=== PATIENT | female | born 1940 | race Caucasian/White ===

== ENCOUNTER → 2017-11-22 | Outpatient (CLI) | payer MEDICARE ==
[~2017-11-22] MED LIST: AMBIEN5 MG PO; ATORVASTATIN CA20 MG PO; CALCIUM CARBON500 MG PO; CINAMMON PO; D3 PO; HYDROCODONE-AP1 EAC1; LEVAQUIN500 MG PO; LISINOPRIL-HCT1 EAC1 PO; LOVASTATIN20 MG PO; NORCO 10-325 T1 EACH PO; NORCO 7.5-3251 EACH PO; TOPROL XL50 MG PO; VITAMIN B12 SHOT IM; Z.0.LOSARTAN POTAS10 PO; Z.0.LOVASTATIN20 MG PO; [UNRECOGNIZED DRUG - OTHER]
--- NOTE | 2017-11-22 12:12 | Diagnostic Imaging Report ---
PROCEDURE:L-SPINE COMPLETE COMPARISON:Lumbar spine CT dated 01/02/13 INDICATIONS:FALL FINDINGS: Limited by generalized demineralization. There are 5 lumbar-type vertebral bodies. Levoscoliosis of lumbar spine with multilevel advanced degenerative changes. Vertebral body heights are maintained. Vascular calcifications. Severe L4-L5 and L5-S1 facet arthropathy with minimal retrolisthesis of L5 in relation to L4. CONCLUSION: No definite evidence of acute fracture or subluxation of lumbar spine. If there is high clinical concern for injury, consider obtaining lumbar spine CT or MRI. Multilevel degenerative changes and lower lumbar spine facet arthropathy as described above. Dictated by: Tommy Connor M.D. on 11/22/2017 at 12:21 Electronically approved by: Tommy Connor M.D. on 11/22/2017 at 12:21
== END ==
LOC: RAD 09:20
PROVIDERS: ATTEND Internal Medicine
DX: M54.5 Low back pain (principal)
CPT/HCPCS: 72110

== ENCOUNTER → 2017-12-11 | Outpatient (CLI) | payer MEDICARE ==
--- NOTE | 2017-12-13 15:43 | Diagnostic Imaging Report ---
EXAMINATION: MRI of the lumbar spine without contrast HISTORY: Status post fall, worsening low back pain COMPARISON: Lumbar spine x-ray from 11/22/2017 TECHNIQUE: Sagittal T1, T2, STIR; axial T2 and proton density. FINDINGS: It is assumed that there are 5 lumbar vertebrae. Curvature/Alignment: Normal lordosis. Levoscoliosis with apex at L2. Grade 1-2 anterolisthesis at L4-L5. Left lateral spondylolisthesis at L3-L4 and right lateral recess at the L1-L2. Vertebrae: No evidence of recent fracture, infection, or neoplasm. Conus: Normal, terminating at L1-L2 Cauda equina: Unremarkable. Lower thoracic: Unremarkable. Paraspinal soft tissues: Severe atrophy of the paraspinal muscles. Cholelithiasis. Degenerative changes: L1-L2: Asymmetric to the right. Mild right foraminal stenoses L2-L3: Asymmetric to the right disc bulge and marginal endplate osteophytes as well as facet arthrosis. Moderate right foraminal stenoses L3-L4: Asymmetric to right disc osteophyte, ligamentum flavum thickening and facet arthrosis. Mild spinal canal stenosis. Moderately severe foraminal stenosis mainly on the right. L4-L5: Mild symmetric disc full chest the third processes as well as ligamentum flavum thickening. Moderate spinal canal and bilateral foraminal stenoses L5-S1: Facet arthrosis in the left. No canal or foraminal stenoses IMPRESSION: 1. Moderate to severe right foraminal stenosis at L2-L3 and L3-L4 due to degenerative changes and levoscoliosis. 2. Grade 1-2 spondylolisthesis at L3-L4. 3. Moderate degenerative spinal canal and bilateral foraminal stenosis at L4-L5. Signed by: Dr. Bree Argueta M.D. on 12/13/2017 3:40 PM
== END ==
LOC: MRI 11:31
PROVIDERS: ATTEND Internal Medicine
DX: M54.5 Low back pain (principal); W19.XXXA Unspecified fall, initial encounter
CPT/HCPCS: 72148

== ENCOUNTER → 2018-06-29 | Outpatient (CLI) | payer MEDICARE | LOC: MAMMO 09:13 | PROVIDERS: ATTEND Internal Medicine | DX: Z12.31 Encounter for screening mammogram for malignant neoplasm of breast (principal) | CPT/HCPCS: 77067 ==

== ENCOUNTER 2019-03-05 09:16 | Emergency (ER) | payer MEDICARE ==
[~2019-03-05] VITALS: Ht 157.5 cm; Wt 59.4 kg
--- OUTSIDE RECORDS SUMMARY | 2019-03-05 09:20 | XMS REPORT ---
Author Author [facility] Address Unknown Phone Unavailable Care Team Providers Care Associate Professor Of Economics Name Role Phone FABIO GARY Unavailable Unavailable Problems This patient has no known problems. Allergies, Adverse Reactions, Alerts This patient has no known allergies or adverse reactions. Medications This patient has no known medications. Results Test Description Test Time Test Comments Text Results Atomic Results Result Comments MAMMOGRAPHY DIGITAL SCR BILAT 2018-06-29 10:53:00 [place] [address] Patient Name: SHANNAN FLORIAN MR #: [id number] : 1940 Age/Sex: 78/F Req #: [id number] [facility] Physician: Ordered by: FABIO GARY MD Report #: [id number] Location: MAMMO Room/Bed: Procedure: [id number] MG/MAMMOGRAPHY DIGITAL SCR BILAT Exam Date: 06/29/18 Exam Time: 914 REPORT STATUS: Signed #[id number] - MGSCRBIL #BILATERAL DIGITAL SCREENING MAMMOGRAM WITH CAD: 06/29/2018 CLINICAL: Routine screening. Comparison is made to exams dated: 07/13/2017 mammogram, 08/26/2015 mammogram and 09/19/2013 mammogram - [facility]. There are scattered fibroglandular elements in both breasts. Current study was also evaluated with a Computer Aided Detection (CAD) system. No new significant masses, calcifications, or other findings are seen in either breast. IMPRESSION: BENIGN There is no mammographic evidence of malignancy. A 1 year screening mammogram is recommended. The patient will be notified by letter of the results. Maurice Abel M.D. ks/:07/05/2018 10:19:12 Antique Refinisher: Nicky VANCE)(Kim), [facility] letter sent: Normal Exam Mammogram BI-RADS: 2 Benign Dictated By: MAURICE ABEL MD 1019 Transcribed By: ELDA on 07/05/18 1019 COPY TO: FABIO GARY MD MRI SPINE LUMBAR WO [place] [address] Patient Name: SHANNAN FLORIAN MR #: [id number] : 1940 Age/Sex: 77/F Req #: [id number] Adm Physician: Ordered by: FABIO GARY MD Report #: [id number] Location: MRI Room/Bed: Procedure: [id number] MRI/MRI SPINE LUMBAR WO Exam Date: Exam Time: REPORT STATUS: Signed EXAMINATION: MRI of the lumbar spine without contrast HISTORY: Status post fall, worsening low back pain COMPARISON: Lumbar spine x-ray from 11/22/2017 TECHNIQUE: Sagittal T1, T2, STIR; axial T2 and proton density. FINDINGS: It is assumed that there are 5 lumbar vertebrae. Curvature/Alignment: Normal lordosis. Levoscoliosis with apex at L2. Grade 1-2 anterolisthesis at L4-L5. Left lateral spondylolisthesis at L3-L4 and right lateral recess at the L1-L2. Vertebrae: No evidence of recent fracture, infection, or neoplasm. Conus: Normal, terminating at L1-L2 Cauda equina: Unremarkable. Lower thoracic: Unremarkable. Paraspinal soft tissues: Severe atrophy of the paraspinal muscles. Cholelithiasis. Degenerative changes: L1-L2: Asymmetric to the right. Mild right fora anna stenoses L2-L3: Asymmetric to the right disc bulge and marginal endplate osteophytes as well as facet arthrosis. Moderate right foraminal stenoses L3-L4: Asymmetric to right disc osteophyte, ligamentum flavum thickening and facet arthrosis. Mild spinal canal stenosis. Moderately severe foraminal stenosis mainly on the right. L4-L5: Mild symmetric disc full chest the third processes as well as ligamentum flavum thickening. Moderate spinal canal and bilateral foraminal stenoses L5-S1: Facet arthrosis in the left. No canal or foraminal stenoses IMPRESSION: 1. Moderate to severe right foraminal stenosis at L2-L3 and L3-L4 due to degenerative changes and levoscoliosis. 2. Grade 1-2 spondylolisthesis at L3-L4. 3. Moderate degenerative spinal canal and bilateral foraminal stenosis at L4-L5. Signed by: Dr. Renato Argueta M.D. on 12/13/2017 3:40 PM Dictated By: RENATO ARGUETA MD 39 Transcribed By: EARLENE on 12/13/17 154 COPY TO: FABIO GRAY MD SP LUMBAR, COMPLETE MIN 4VW [place] [address] Patient Name: SHANNAN FLORIAN MR #: [id number] : 1940 Age/Sex: 77/F Req #: [id number] Adm Physician: Ordered by: FABIO GARY MD Report #: [id number] Location: [facility] Room/Bed: Procedure: [id number] DX/SP LUMBAR, COMPLETE MIN 4VW Exam Date: 11/22/17 Exam Time: 0945 REPORT STATUS: Signed PROCEDURE: L-SPINE COMPLETE COMPARISON: Lumbar spine CT dated 01/02/13 INDICATIONS: FALL FINDINGS: Limited by generalized demineralization. There are 5 lumbar-type vertebral bodies. Levoscoliosis of lumbar spine with multilevel advanced degenerative changes. Vertebral body heights are maintained. Vascular calcifications. Severe L4-L5 and L5-S1 facet arthropathy with minimal retrolisthesis of L5 in relation to L4. CONCLUSION: No definite evidence of acute fracture or subluxation of lumbar spine. If there is high clinical concern for injury, consider obtaining lumbar spine CT or MRI. Multilevel degenerative changes and lower lumbar spine facet arthropathy as described above. Dictated by: Tommy Whiting M.D. on 11/22/2017 at 12:21 Electronically approved by: Tommy Whiting M.D. on 11/22/2017 at 12:21 Dictated By: TOMMY WHITING MD 1221 Transcribed By: KVNG on 11/22/17 1221 COPY TO: FABIO GARY MD MAMMOGRAPHY DIGITAL SCR [place] [address] Patient Name: SHANNAN FLORIAN MR #: [id number] : 1940 Age/Sex: 77/F Req #: [id number] Adm Physician: Ordered by: FABIO GARY MD Report #: [id number] Location: [facility] Room/Bed: Procedure: [id number] MG/MAMMOGRAPHY DIGITAL SCR BILAT Exam Date: 07/13/17 Exam Time: 1443 REPORT STATUS: Signed #[id number] - MGSCRBIL #BILATERAL DIGITAL SCREENING MAMMOGRAM WITH CAD: 07/13/2017 Comparison is made to exams dated: 08/26/2015 mammogram, 09/19/2013 mammogram and 04/20/2011 mammogram - [facility]. Current study contains 4 films. There are scattered fibroglandular elements in both breasts. Current study was also evaluated with a Computer Aided Detection (CAD) system. There are benign vascular calcifications and punctate calcifications in both breasts. There also are stable benign nodules in both breasts. No significant masses, calcifications, or other findings are seen in either breast. There has been no significant interval change. IMPRESSION: BENIGN There is no mammographic evidence of malignancy. A 1 year screening mammogram is recommended. The patient will be notified by letter of the results. Dr. Unique Wall MD rs/:07/20/2017 08:41:34 Antique Refinisher: Nicky Lara RT(R)(M), [facility] letter sent: Compared to Prior B9 Mammogram BI-RADS: 2 Benign Dictated By: UNIQUE WALL MD 0 Transcribed By: ELDA on 07/20/17840 COPY TO: FABIO GARY MD
[2019-03-05] MEDS ORDERED: MUPIROCIN 2% OINT 22 GM TUBE TOP ONE (09:45)
[2019-03-05] MEDS ORDERED: LIDOCAINE HCL 1% LOCAL INJ 20 ML VIAL ONE (09:53)
[2019-03-05] MEDS ORDERED: LIDOCAINE HCL 1% 2 ML AMP INJ ONE (10:00)
[2019-03-05 10:18] VITALS: BP 135/78
== END 2019-03-05 10:22 | disposition home or self-care (01) ==
LOC: ER 09:16
DX: S81.811A Laceration without foreign body, right lower leg, initial encounter (principal); W22.03XA Walked into furniture, initial encounter; Y92.008 Other place in unspecified non-institutional (private) residence as the place of occurrence of the external cause; I10 Essential (primary) hypertension; E11.9 Type 2 diabetes mellitus without complications; E78.5 Hyperlipidemia, unspecified; H40.9 Unspecified glaucoma
CPT/HCPCS: 99283; J2001

== ENCOUNTER 2020-09-07 19:03 | Emergency (ER) | payer MEDICARE ==
[~2020-09-07] VITALS: Ht 157.5 cm; Wt 51.3 kg
[2020-09-07] MEDS ORDERED: BACTRIM DS TAB1 EACH PO (19:39)
--- NOTE | 2020-09-07 19:39 | Emergency Department Note ---
History of Present Illnes History of Present Illness Chief Complaint: skin tear left leg s/p ht it on an animal cage History of Present Illness This is a 80 year old female. was doing well prior to this. Historian: Patient Arrival Mode: Car History limited by: condition of the patient (normal) Court Stenographer Required: No Onset (how long ago): hour(s) (1) Location: rgt leg Quality: sharp Radiation: Reports non-radiation Severity: moderate Onset quality: sudden Duration (how long): hour(s) (1) Timing of current episode: constant Progression: unchanged Chronicity: new Context: Reports trauma/injury; Denies recent illness, Denies recent surgery, Denies recent immobilization, Denies recent travel, Denies new medications, Denies hx of DVT/PE, Denies non- compliance w/ medications Relieving factors: none Exacerbating factors: none Associated symptoms: Reports denies other symptoms Treatments prior to arrival: none Past Medical/Family History Physician Review I have reviewed the patient's past medical and family history. Any updates have been documented here. Past Medical History Recent Fever: No Clinical Suspicion of Infectio: No New/Unexplained Change in Ment: No Past Medical History: Hypertension, Diabetes, Hyperlipedemia Other Medical History: GLAUCOMA SVT Past Surgical History: Back Surgery Other Surgery: left foot surgery, bladder suspension, CATARACTS C6-C7 SPINAL FUSION Carpel tunnel bilateral Right leg skin tear Social History Smoking Cessation: Never Smoker Counseling Performed: No Alcohol Use: None Any Illegal Drug Use: No Physically hurt or threatened: No Other Last Tetanus: UTD Any Pre-Existing Lines (PICC,: No Review of Systems Review of Systems Constitutional: Reports no symptoms EENTM: Reports no symptoms Cardiovascular: Reports no symptoms Respiratory: Reports no symptoms Gastrointestinal: Reports no symptoms Genitourinary: Reports no symptoms Musculoskeletal: Reports no symptoms Integumentary: Reports as per HPI Neurological: Reports no symptoms Psychological: Reports no symptoms Endocrine: Reports no symptoms Hematological/Lymphatic: Reports no symptoms Review of other systems: All other systems negative Physical Exam Related Data Allergies: Coded Allergies: Penicillins (Verified Allergy, Mild, RASH, 09/14/14) aspirin (Verified Allergy, Mild, ABD PAIN, 09/14/14) salsalate (Verified Allergy, Mild, HEARING LOSS, 09/14/14) carisoprodol (Verified Adverse Reaction, Mild, RAPID EYE MOVEMENT, 4) codeine (Verified Adverse Reaction, Mild, DIZZINESS AND VOMITING, 10/11/14) Triage Vital Signs Vital Signs Date Time Temp Pulse Resp B/P (MAP) Pulse Ox O2 Delivery O2 Flow Rate FiO2 09/07/20 19:10 98.5 78 16 180/87 100 Room Air Vital signs reviewed: Yes Physical Exam CONSTITUTIONAL Constitutional: Present well-developed, Present well-nourished HENT HENT: Present normocephalic, Present atraumatic, Present oropharynx clear/moist, Present nose normal HENT L/R: Present left ext ear normal, Present right ext ear normal EYES Eyes: Reports PERRL, Reports conjunctivae normal NECK Neck: Present ROM normal PULMONARY Pulmonary: Present effort normal, Present breath sounds normal CARDIOVASCULAR Cardiovascular: Present regular rhythm, Present heart sounds normal, Present capillary refill normal, Present normal rate GASTROINTESTINAL Abdominal: Present soft, Present nontender, Present bowel sounds normal GENITOURINARY Genitourinary: Present exam deferred SKIN Skin: Present warm, Present dry, Present other (10cm skin tear left leg. no bleeding) MUSCULOSKELETAL Musculoskeletal: Present ROM normal, Present edema NEUROLOGICAL Neurological: Present alert, Present oriented x 3, Present no gross motor or sensory deficits PSYCHOLOGICAL Psychological: Present mood/affect normal, Present judgement normal Procedures Laceration Laceration: Laceration 1 (skin tear left leg) Site: lower extremity (left anterior leg) Side: left Size (cm): 10 Description: flap Depth: simple, single layer Pre-repair: wound exposed, irrigated extensively (with hydrogen peroxide) Skin layer closed with: other (steristrips done by the nurse under my supervision) Additional comments no complications Assessment & Plan Medical Decision Making MDM see below Assessment & Plan Final Impression: (1) Skin tear Depart Disposition: HOME, SELF-CARE Last Vital Signs Date Time Temp Pulse Resp B/P (MAP) Pulse Ox O2 Delivery O2 Flow Rate FiO2 09/07/20 19:10 98.5 78 16 180/87 100 Room Air Home Meds Active Scripts Sulfamethoxazole/Trimethoprim (BACTRIM DS TABLET) 1 Each Tablet, 1 TAB PO Q12H, #28 TAB Prov:JEFRY UMANA 09/07/20 Metoprolol Succinate (TOPROL XL) 50 Mg Tab.er.24h, 50 MG PO DAILY for 30 Days Prov:MARCELINA HERNANDEZ MD 05/21/17 Reported Medications [Vitamin B12 Shot] No Conflict Check, 1 DOSE IM UD 05/19/17 Levofloxacin (LEVAQUIN) 500 Mg Tablet, 500 MG PO DAILY for 5 Days, TAB 03/19/17 Zolpidem Tartrate (AMBIEN) 5 Mg Tablet, 5 MG PO HS, #30 TAB 05/11/16 Atorvastatin Calcium (ATORVASTATIN CALCIUM) 20 Mg Tablet, 20 MG PO 2100, TAB 05/11/16 [Cinammon] No Conflict Check, PO DAILY 05/11/16 [D3 ] No Conflict Check, 2000 MG PO DAILY 05/11/16 Calcium Carbonate (CALCIUM CARBONATE) 500 Mg Tablet, 600 MG PO DAILY, TAB 05/11/16 Lisinopril/Hydrochlorothiazide (LISINOPRIL-HCTZ 20-25 MG TAB) 1 Each Tablet, 0.5 TAB PO BID 01/23/14 JEFRY UMANA Sep 07, 2020 19:39
--- OUTSIDE RECORDS SUMMARY | 2020-09-07 19:41 | XMS REPORT | Continuity of Care Document ---
Author Author [facility] Organization [facility] Address [address] [place] [address] [address] [place] [address] Phone Unavailable Care Team Providers Care Master Control Supervisor Name Role Phone FABIO GARY MD PCP FABIO GARY Attphys Unavailable Payers Payer Name Policy Type Policy Number Effective Date Expiration Date Lan ISAAC [id number] 2016 00:00:00 [facility] Medicare A & B [id number] 2007 00:00:00 [facility] Problems Condition Name Condition Details Condition Category Status Onset Date Resolution Date Last Treatment Date Treating Clinician Comments Source Chest pain Chest pain Problem Active [facility] Laceration of right lower extremity excluding thigh La ceration of leg not thigh, right Problem Active [facility] Sciatica Sciatica Problem Active [facility] Allergies, Adverse Reactions, Alerts Allergy Name Allergy Type Status Severity Reaction(s) Onset Date Inacti ve Date Treating Clinician Comments Source Codeine Propensity to adverse reactions Active Mild DIZZ INESS AND VOMITING 2014-10-11 00:00:00 [facility] Carisoprodol Propensity to adverse reactions Active Mild RA PID EYE MOVEMENT 2014-10-11 00:00:00 [facility] Penicillin Allergy to Substance Active Mild RASH 2014-09-14 00:00:00 [facility] Aspirin Allergy to Substance Active Mild ABD PAIN 2014-09-14 00:00:00 [facility] Salsalate Allergy to Substance Active Mild HEARING LOSS 2014-09-14 0 0:00:00 [facility] Medications Ordered Medication Name Filled Medication Name Start Date Stop Da te Current Medication? Ordering Clinician Indication Dosage Frequency Signature (SIG) Comments Components Source Metoprolol Succinate (Toprol Xl) 50 Mg Tab.er.24h Meto prolol Succinate (Toprol Xl) 50 Mg Tab.er.24h 2017-05-21 00:00:00 Yes Kamini day Md 50 Daily [facility] Atorvastatin Calcium 20 Mg Tablet Atorvastatin Calcium 20 Mg Tablet Yes 20 Today At 9:00PM [facility] Calcium Carbonate 500 Mg Tablet Calcium Carbonate 500 Mg Tablet Yes 600 Daily [facility] Cinammon Cinammon Yes Daily [facility] D3 D3 Yes 2000 Daily [facility] Levofloxacin (Levaquin) 500 Mg Tablet Levofloxacin (Levaquin) 500 M g Tablet Yes 500 Daily [facility] Lisinopril/Hydrochlorothiazide (Lisinopril-Hctz 20-25 Mg Tab) 1 Each Tablet Lisinopril/Hydrochlorothiazide (Lisinopril-Hctz 20-25 Mg Tab) 1 Each Tablet Yes .5 Twice A Day [facility] Vitamin B12 Shot Vitamin B12 Shot Yes 1 Use As Directed [facility] Zolpidem Tartrate (Ambien) 5 Mg Tablet Zolpidem Tartrate (Ambien ) 5 Mg Tablet Yes 5 Bedtime [facility] Hydrocodone Bit/Acetaminophen ([place] 10-325 Tablet) 1 Each Tablet, 1 Tab Oral Hydrocodone Bit/Acetaminophen ([place] 10-325 Tablet) 1 Each Tablet, 1 Tab Oral 2016-05-11 00:00:00 No 1 Every 6 Hours [facility] Hydrocodone Bit/Acetaminophen ([place] 7.5-325 Tablet) 1 Each Tablet, 1 Ea Oral Hydrocodone Bit/Acetaminophen ([place] 7.5-325 Tablet) 1 Each Tablet, 1 Ea Oral 2016-05-11 00:00:00 No 1 Every 4 Hours as nee ded for Pain [facility] Lovastatin 20 Mg Tablet, 20 Mg Oral Lovastatin 20 Mg Tablet, 20 Mg Oral 2016-05-11 00:00:00 No 20 Qhs [facility] Lovastatin 20 Mg Tablet, 20 Mg Oral Lovastatin 20 Mg Tablet, 20 Mg Oral 2016-05-11 00:00:00 No 20 Bedtime [facility] Zolpidem Tartrate (Ambien) 5 Mg Tablet, 5 Mg Oral Zolp idem Tartrate (Ambien) 5 Mg Tablet, 5 Mg Oral 2014-10-11 00:00:00 No 5 Qhs Prn [facility] Radha Garcia , 2012-04-05 00:00:00 No 80MG Daily [facility] Procedures This patient has no known procedures. Encounters Start Date/Time End Date/Time Encounter Type Admission Type [facility] Care Department Encounter ID Source 2019-03-05 09:16:00 2019-03-05 10:22:00 Departed Emergency Room [facility] [id number] [facility] 2018-06-29 09:13:00 2018-06-29 09:13:00 Registered Clinic 3 FABIO GARY [facility] [id number] [facility] Results Test Description Test Time Test Comments Results Result Comments Source MAMMOGRAPHY DIGITAL SCR BILAT 2018-06-29 10:53:00 [place] [address] Patient Name: SHANNAN FLORIAN MR #: [id number] : 1940 Age/Sex: 78/F Req #: [id number] Adm Physician: Ordered by: FABIO GARY MD Report #: [id number] Location: MAMMO Room/Bed: Procedure: [id number] MG/MAMMOGRAPHY DIGITAL SCR BILAT Exam Date: 06/29/18 Exam Time: 914 REPORT STATUS: Signed #[id number] - MGSCRBIL #BILATERAL DIGITAL SCREENING MAMMOGRAM WITH CAD: 06/29/2018 CLINICAL: Routine screening. Comparison is made to exams dated: 07/13/2017 mammogram, 08/26/2015 mammogram and 09/19/2013 mammogram - [facility]. There are scattered fibroglandular elements in both breasts. Current study was also evaluated with a Computer Aided Detection (CAD) system. No new significant masses, calcifications, or other findings are seen in either breast. IMPRESSION: BENIGN There is no mammographic evidence of malignancy. A 1 year screening mammogram is recommended. The patient will be notified by letter of the results. Mindy Abel M.D. ks/:07/05/2018 10:19:12 Blue Line Hanger: Nicky VANCE)(Kim), [facility] letter sent: Normal Exam Mammogram BI-RADS: 2 Benign Dictated By: MINDY ABEL MD 1019 Transcribed By: ELDA on 07/05/18 1019 COPY TO: FABIO GARY MD MRI SPINE LUMBAR WO [place] [address] Patient Name: SHANNAN FLORIAN MR #: [id number] : 1940 Age/Sex: 77/F Req #: [id number] [facility] Physician: Ordered by: FABIO GARY MD Report #: [id number] Location: MRI Room/Bed: Procedure: [id number] MRI/MRI SPINE LUMBAR WO Exam Date: Exam [...] 3:40 PM Dictated By: RENATO ARGUETA MD 1545 Transcribed By: EARLENE on 12/13/17 1549 COPY TO: FABIO GARY MD SP LUMBAR, COMPLETE MIN 4VW [place] [address] [place] [address] Patient Name: SHANNAN FLORIAN MR #: [id number] : 1940 Age/Sex: 77/F Req #: [id number] Adm Physician: Ordered by: FABIO GARY MD Report #: [id number] Location: [facility] Room/Bed: Procedure: [id number] DX/SP LUMBAR, COMPLETE MIN 4VW Exam Date: 11/22/17 Exam Time: 944 REPORT STATUS: Signed PROCEDURE: L-SPINE COMPLETE COMPARISON: [...] COPY TO: FABIO GARY MD MAMMOGRAPHY DIGITAL [place] [address] Patient Name: SHANNAN FLORIAN MR #: [id number] : 1940 Age/Sex: 77/F Req #: [id number] Adm Physician: Ordered by: FABIO GARY MD Report #: [id number] Location: MAMMO Room/Bed: Procedure: MG/MAMMOGRAPHY DIGITAL SCR BILAT Exam Date: 07/13/17 Exam Time: 1443 REPORT STATUS: Signed #[id number] - MGSCRBIL #BILATERAL DIGITAL SCREENING MAMMOGRAM WITH CAD: 07/13/2017 Comparison is made to exams dated: 08/26/2015 mammogram, 09/19/2013 mammogram and 04/20/2011 mammogram - [facility]. Current study contains 4 films. There [...] notified by letter of the results. Dr. Surjit Wall MD rs/:07/20/2017 08:41:34 [employer] Line Hanger: Nicky LYMAN(R)(M), [facility] letter sent: Compared to Prior B9 Mammogram BI-RADS: 2 Benign Dictated By: SURJIT WALL MD 0 Transcribed By: ELDA on 07/20/17840 COPY TO: FABIO GARY MD
[2020-09-07] MEDS ORDERED: TETANUS/DIPHTHERIA TOX ADULT 0.5 ML SYR ONE (19:58)
[2020-09-07] MEDS ORDERED: TETANUS/DIPHTHERIA TOX ADULT 0.5 ML SYR IM ONE (20:00)
== END 2020-09-07 20:30 | disposition home or self-care (01) ==
LOC: FSED 19:39
DX: S81.812A Laceration without foreign body, left lower leg, initial encounter (principal); W26.8XXA Contact with other sharp object(s), not elsewhere classified, initial encounter; Y93.01 Activity, walking, marching and hiking; Y92.008 Other place in unspecified non-institutional (private) residence as the place of occurrence of the external cause; I10 Essential (primary) hypertension; E11.9 Type 2 diabetes mellitus without complications; E78.5 Hyperlipidemia, unspecified; H40.9 Unspecified glaucoma
CPT/HCPCS: 90471; 90714; 99283

== ENCOUNTER 2020-10-21 13:15 | Outpatient (RCR) | payer MEDICARE ==
[~2020-10-21 13:15] MED LIST changes: +BACTRIM DS TAB1 EACH PO; +COLLAGENASE OINTMENT 30 GM TUBE ONE; +LIDOCAINE VISC 2% SOLN 15 ML UDC ONE
== END 2020-10-24 ==
LOC: WCC 13:15
PROVIDERS: ATTEND Internal Medicine Infectious Disease
DX: L03.116 Cellulitis of left lower limb (principal); S81.802A Unspecified open wound, left lower leg, initial encounter; R60.0 Localized edema; I83.93 Asymptomatic varicose veins of bilateral lower extremities; I87.2 Venous insufficiency (chronic) (peripheral); I10 Essential (primary) hypertension; E78.5 Hyperlipidemia, unspecified; M13.80 Other specified arthritis, unspecified site; W22.03XA Walked into furniture, initial encounter; X58.XXXA Exposure to other specified factors, initial encounter
CPT/HCPCS: 36415; 82948

== ENCOUNTER 2020-10-28 14:39 | Outpatient (RCR) | payer MEDICARE ==
[~2020-10-28 14:39] MED LIST changes: -COLLAGENASE OINTMENT 30 GM TUBE ONE; -LIDOCAINE VISC 2% SOLN 15 ML UDC ONE
== END 2020-11-24 ==
LOC: WCC 14:39
PROVIDERS: ATTEND Internal Medicine Infectious Disease
DX: E11.65 Type 2 diabetes mellitus with hyperglycemia (principal); L03.116 Cellulitis of left lower limb; S81.802A Unspecified open wound, left lower leg, initial encounter; I87.2 Venous insufficiency (chronic) (peripheral); I83.93 Asymptomatic varicose veins of bilateral lower extremities; E78.5 Hyperlipidemia, unspecified; I10 Essential (primary) hypertension; M13.80 Other specified arthritis, unspecified site; W22.03XA Walked into furniture, initial encounter; X58.XXXA Exposure to other specified factors, initial encounter

== ENCOUNTER 2020-11-30 11:56 | Emergency (ER) | payer MEDICARE ==
[~2020-11-30] VITALS: Ht 157.5 cm; Wt 51.8 kg
[2020-11-30] MEDS ORDERED: TRAMADOL HCL100 MG (12:57)
[2020-11-30] MEDS ORDERED: NIFEDIPINE ER30 M1 PO (12:57)
[2020-11-30] MEDS ORDERED: GLIMEPIRIDE4 MG (12:57)
[2020-11-30] MEDS ORDERED: MEDROL4 MG PO (14:27)
[2020-11-30] MEDS ORDERED: HYDROCODON-ACE1 EA12 PO (14:29)
[2020-11-30] MEDS ORDERED: HYDROCODONE/APAP 5MG-325MG TAB PO NR (14:30)
[2020-11-30] MEDS ORDERED: HYDROCODONE/APAP 5MG-325MG TAB ONE (14:34)
[2020-11-30 14:43] VITALS: BP 180/85
== END 2020-11-30 14:40 | disposition home or self-care (01) ==
LOC: FSED 14:28
DX: M25.511 Pain in right shoulder (principal); M25.571 Pain in right ankle and joints of right foot; R94.31 Abnormal electrocardiogram [ECG] [EKG]; I10 Essential (primary) hypertension; E11.9 Type 2 diabetes mellitus without complications; E78.5 Hyperlipidemia, unspecified; I25.10 Atherosclerotic heart disease of native coronary artery without angina pectoris; H40.9 Unspecified glaucoma; Z86.73 Personal history of transient ischemic attack (TIA), and cerebral infarction without residual deficits
CPT/HCPCS: 93005; 99283

== ENCOUNTER 2021-11-25 07:24 | Emergency (ER) | payer MEDICARE, OTHER ==
[~2021-11-25] VITALS: Ht 157.5 cm; Wt 51.7 kg
[~2021-11-25 07:24] MED LIST changes: +GLIMEPIRIDE4 MG; +HYDROCODON-ACE1 EA12 PO; +MEDROL4 MG PO; +NIFEDIPINE ER30 M1 PO; +TRAMADOL HCL100 MG
[2021-11-25] MEDS ORDERED: FENTANYL CITRATE/PF 100MCG/2 ML INJ IJ PRN (08:00)
[2021-11-25] MEDS ORDERED: DOXYCYCLINE HY100 MG PO (09:41)
[2021-11-25 10:02] VITALS: BP 138/76
== END 2021-11-25 10:08 | disposition home or self-care (01) ==
LOC: ER 07:30
DX: S81.812A Laceration without foreign body, left lower leg, initial encounter (principal); S00.511A Abrasion of lip, initial encounter; W01.0XXA Fall on same level from slipping, tripping and stumbling without subsequent striking against object, initial encounter; Y93.01 Activity, walking, marching and hiking; Y92.481 Parking lot as the place of occurrence of the external cause; I10 Essential (primary) hypertension; E11.9 Type 2 diabetes mellitus without complications; E78.5 Hyperlipidemia, unspecified; I25.10 Atherosclerotic heart disease of native coronary artery without angina pectoris; H40.9 Unspecified glaucoma; Z86.73 Personal history of transient ischemic attack (TIA), and cerebral infarction without residual deficits
CPT/HCPCS: 70450; 70486; 72125; 73562; 73590; 73610; 73630; 99283; J3010

== ENCOUNTER → 2022-12-29 | Day surgery (SDC) | payer MEDICARE ==
[2022-12-24 12:17] LABS: BASOPHILS # (AUTO) 0.1 (0.0-0.1); BASOPHILS % 0.8 % (0.0-1.0); EOSINOPHILS # (AUTO) 0.5 (0.0-0.4); EOSINOPHILS % 3.5 % (0.0-6.0); HEMATOCRIT 37.9 % (34.2-44.1); HEMOGLOBIN 11.9 g/dL (12.0-16.0); LYMPHOCYTES # (AUTO) 6.1 (1.0-3.2); LYMPHOCYTES % 45.8 % (18.0-39.1); MEAN CORPUSCULAR HEMOGLOBIN 28.3 pg (28-32); MEAN CORPUSCULAR HGB CONC 31.4 g/dL (31-35); MONOCYTES # (AUTO) 1.5 (0.2-0.8); MONOCYTES % 11.1 % (4.4-11.3); NEUTROPHILS # (AUTO) 5.1 (2.1-6.9); NEUTROPHILS % 38.6 % (38.7-80.0); PLATELET COUNT 268 x10e3/uL (140-360); RED BLOOD COUNT 4.21 x10e6/uL (3.6-5.1); RED CELL DISTRIBUTION WIDTH 12.3 % (11.7-14.4)
[2022-12-24 12:36] LABS: ANION GAP 15.9 mmol/L (8-16); CREATININE, SERUM 1.03 mg/dL (0.57-1.11); POTASSIUM 3.9 mmol/L (3.5-5.1)
[2022-12-24 13:14] LABS: EOSINOPHILS % (MANUAL) 4 % (0-7); LYMPHOCYTES % (MANUAL) 38 % (19-48); MONOCYTES % (MANUAL) 12 % (3.4-9.0); NEUTROPHILS % (MANUAL) 39 % (40-74); PLATELET ESTIMATE ADEQUATE; PLATELET MORPHOLOGY COMMENT NORMAL; RBC MORPHOLOGY COMMENT NORMAL
[~2022-12-29] MED LIST changes: +ACETAMINOPHEN 1000 MG/100 ML 100 ML IV ONE; +BUPIVACAINE HCL 0.5% INJ 30 ML VIAL INJ ONE; +DEXAMETHASONE SOD PHOS INJ 4 MG/ML SDV ONE; +DOXYCYCLINE HY100 MG PO; +FENTANYL CITRATE/PF 100MCG/2 ML INJ ONE; +GLYCOPYRROLATE INJ 0.2 MG/ML VIAL ONE; +LIDOCAINE HCL 2% LOCAL INJ 5 ML SDV VIAL INJ ONE; +METHYLPREDNISOLONE ACETATE 80 MG/ML VIAL ONE; +MUPIROCIN 2% OINT 22 GM TUBE ONE; +ONDANSETRON HCL INJ 2MG/ML 2ML 2 MG/ML VIAL ONE; +POVIDONE IODINE 0.05% 0.05 % ML PO ONE; +PROPOFOL IV EMULSION 10 MG/ML 20 ML VIAL ONE; +SEVOFLURANE INHAL SOLN 250 ML PEN BTL ONE
[2022-12-29 08:35] VITALS: BP 134/67
== END | disposition home or self-care (01) ==
LOC: OR 06:50
PROVIDERS: ATTEND Plastic Surgery
DX: M65.342 Trigger finger, left ring finger (principal); M19.042 Primary osteoarthritis, left hand; I10 Essential (primary) hypertension; E11.9 Type 2 diabetes mellitus without complications; Z88.6 Allergy status to analgesic agent; Z88.0 Allergy status to penicillin; Z88.2 Allergy status to sulfonamides; Z88.8 Allergy status to other drugs, medicaments and biological substances; Z01.810 Encounter for preprocedural cardiovascular examination; Z01.812 Encounter for preprocedural laboratory examination; Z01.818 Encounter for other preprocedural examination; Z79.84 Long term (current) use of oral hypoglycemic drugs; Z79.899 Other long term (current) drug therapy
CPT/HCPCS: 20605; 26055; 36415 ×2; 71046; 80048; 82948; 85025; 93005; J0131; J1040; J1100; J2001; J2405; J2704; J3010

== ENCOUNTER → 2023-01-15 | Outpatient (CLI) | payer MEDICARE ==
[~2023-01-15] MED LIST changes: -ACETAMINOPHEN 1000 MG/100 ML 100 ML IV ONE; -BUPIVACAINE HCL 0.5% INJ 30 ML VIAL INJ ONE; -DEXAMETHASONE SOD PHOS INJ 4 MG/ML SDV ONE; -FENTANYL CITRATE/PF 100MCG/2 ML INJ ONE; -GLYCOPYRROLATE INJ 0.2 MG/ML VIAL ONE; -LIDOCAINE HCL 2% LOCAL INJ 5 ML SDV VIAL INJ ONE; -METHYLPREDNISOLONE ACETATE 80 MG/ML VIAL ONE; -MUPIROCIN 2% OINT 22 GM TUBE ONE; -ONDANSETRON HCL INJ 2MG/ML 2ML 2 MG/ML VIAL ONE; -POVIDONE IODINE 0.05% 0.05 % ML PO ONE; -PROPOFOL IV EMULSION 10 MG/ML 20 ML VIAL ONE; -SEVOFLURANE INHAL SOLN 250 ML PEN BTL ONE
== END ==
LOC: DX 08:14
PROVIDERS: ATTEND Internal Medicine
DX: M81.0 Age-related osteoporosis without current pathological fracture (principal)
CPT/HCPCS: 77080

== ENCOUNTER → 2025-03-14 | Outpatient (REF) | payer MEDICARE ==
[~2025-03-14] MED LIST changes: +IOPAMIDOL 370 MG/ML 100 ML INFUS..BTL INJ ONE
[2025-03-14 13:12] LABS: CREATININE, SERUM 1.07 mg/dL (0.57-1.11)
== END ==
LOC: CT 11:21
PROVIDERS: ATTEND Internal Medicine
DX: K86.2 Cyst of pancreas (principal)
CPT/HCPCS: 36415; 74170; 82565; 84520; Q9967

== ENCOUNTER 2025-05-19 18:44 | Observation (INO) | payer MEDICARE ==
[~2025-05-19] VITALS: Ht 157.5 cm; Wt 51.7 kg
[~2025-05-19 18:44] MED LIST changes: -IOPAMIDOL 370 MG/ML 100 ML INFUS..BTL INJ ONE
[2025-05-19 18:55] VITALS: TEMP 98.8
[2025-05-19 19:17] LABS: BASOPHILS % 0.5 % (0.0-1.0); EOSINOPHILS % 2.3 % (0.0-6.0); LYMPHOCYTES % 21.7 % (18.0-39.1); MONOCYTES % 13.2 % (4.4-11.3); NEUTROPHILS % 60.8 % (38.7-80.0); RED CELL DISTRIBUTION WIDTH 14.6 % (11.7-14.4)
[2025-05-19] MEDS: ONDANSETRON HCL INJ 2MG/ML 2ML 2 MG/ML VIAL IV STA (19:31)
[2025-05-19 19:32] LABS: INR 0.8
[2025-05-19] MEDS: Morphine 4mg INJECTION 4 MG/ML INJ IV ONE (19:32)
[2025-05-19 19:41] LABS: EST GLOMERULAR FILTRATION RATE 51.0 ML/MIN (>=60)
[2025-05-19 20:52] VITALS: PULSE 76; RESP 18
[2025-05-19] MEDS ORDERED: DEXTROSE 50% SYRINGE 50 ML IV PRN (21:15)
[2025-05-19 21:30] VITALS: PULSE 76; RESP 18; O2SAT 98
[2025-05-19 22:35] VITALS: BP_SYST 176; BP_SYST 190; BP_DIAS 64; BP_DIAS 70; PULSE 69; RESP 16; TEMP 98.6; O2SAT 99
[2025-05-19] MEDS ORDERED: ULTRAM 50MG50 MG PO (22:47)
[2025-05-19] MEDS ORDERED: METOPROLOL SUCC50 MG PO (22:47)
[2025-05-19] MEDS: HYDRALAZINE HCL 20 MG/ML VIAL IV PRN (23:19)
[2025-05-20] VITALS (7 sets, daily range): BP systolic 135–156; BP diastolic 41–113; PULSE 74–84; RESP 16–20; TEMP 97.2–98.6; O2SAT 96–100
[2025-05-20 05:10] LABS: BASOPHILS % 0.4 % (0.0-1.0); EOSINOPHILS % 2.3 % (0.0-6.0); LYMPHOCYTES % 24.9 % (18.0-39.1); MONOCYTES % 10.9 % (4.4-11.3); NEUTROPHILS % 60.2 % (38.7-80.0); RED CELL DISTRIBUTION WIDTH 14.6 % (11.7-14.4)
[2025-05-20] MEDS ORDERED: ZOLPIDEM TARTRATE 5 MG TAB PO PRN (05:15)
[2025-05-20 05:36] LABS: CHOL/HDL RATIO 3.0 (3.0-3.6); EST GLOMERULAR FILTRATION RATE 61.0 ML/MIN (>=60); LDL CHOLESTEROL 86.0 MG/DL (60-130)
[2025-05-20] MEDS: METOPROLOL SUCCINATE 50 MG TAB XL PO SCH (10:26)
[2025-05-20] MEDS: INSULIN REGULAR, HUMAN 100 UNIT/1 ML SQ SCH (10:35)
[2025-05-20] MEDS: ONDANSETRON HCL INJ 2MG/ML 2ML 2 MG/ML VIAL IV PRN (10:54)
[2025-05-20] MEDS: Morphine 4mg INJECTION 4 MG/ML INJ IV PRN (10:58)
[2025-05-20] MEDS ORDERED: NIFEDIPINE CR 30 MG TAB PO SCH (21:00)
[2025-05-20] MEDS ORDERED: ATORVASTATIN 20 MG TAB PO SCH (21:00)
== END 2025-05-20 17:27 | disposition home or self-care (01) ==
LOC: ER 18:59 → ERHOLD 21:11 → MED/SURG2 22:02
PROVIDERS: ADMIT Internal Medicine; ATTEND Internal Medicine
DX: R07.9 Chest pain, unspecified (principal); K85.10 Biliary acute pancreatitis without necrosis or infection; I12.9 Hypertensive chronic kidney disease with stage 1 through stage 4 chronic kidney disease, or unspecified chronic kidney disease; N18.31 Chronic kidney disease, stage 3a; D72.829 Elevated white blood cell count, unspecified; E11.22 Type 2 diabetes mellitus with diabetic chronic kidney disease; I25.10 Atherosclerotic heart disease of native coronary artery without angina pectoris; H40.9 Unspecified glaucoma; K21.9 Gastro-esophageal reflux disease without esophagitis; Z79.84 Long term (current) use of oral hypoglycemic drugs
CPT/HCPCS: 36415 ×2; 71045; 76705; 80053 ×2; 80061; 82550 ×2; 82948 ×2; 83690 ×2; 83880; 84484 ×2; 85025 ×2; 85610; 85730; 93005; 94799 ×2; 99284; G0378 ×2; J0360; J2270 ×2; J2405 ×2; J2470 ×2